=== PATIENT | female | born 1960 | race Caucasian/White ===

== ENCOUNTER 2018-04-01 22:06 | Observation (INO) ==
--- NOTE | 2018-04-01 22:29 | Emergency Department Note ---
Disposition Clinical Impression: Chest pain Disposition: Admitted As Inpatient Condition: Good General Adult HPI - General Chief complaint: ED Chest Pain Stated complaint: chest pains Time Seen by Provider: 04/01/18 22:23 Source: patient Limitations: no limitations - History of Present Illness Pain Scale: 4 - Related Data Home Medications Medication Instructions Recorded Confirmed BuPROPion SR (12 HR) [Wellbutrin 150 mg PO BID 04/02/18 04/02/18 SR] Lisinopril-HCTZ 10-12.5 [Prinzide 1 each PO DAILY 04/02/18 04/02/18 10-12.5] Lovastatin [Altoprev] 40 mg PO HS 04/02/18 04/02/18 glipiZIDE [Glipizide] 10 mg PO BID 04/02/18 04/02/18 Allergies Allergy/AdvReac Type Severity Reaction Status Date / Time Penicillins AdvReac Rash Verified 04/01/18 22:07 Past Medical History - Past Medical History Medical history: Reports: diabetes, hypertension Psychiatric history: Reports: no psych history - Social History Smoking Status: Former smoker Alcohol use: Reports: none Drug use: Reports: none Physical Exam - General Limitations: no limitations General appearance: alert Course Vital Signs Temperature 97.8 F 04/01/18 22:08 Pulse Rate 71 04/01/18 22:08 Respiratory Rate 20 04/01/18 22:08 Blood Pressure 137/68 04/01/18 22:08 O2 Sat by Pulse Oximetry 97 04/01/18 22:08 Temperature 97.4 F L 04/02/18 03:25 Pulse Rate 60 04/02/18 03:25 Respiratory Rate 15 04/02/18 03:25 Blood Pressure 112/63 04/02/18 03:25 O2 Sat by Pulse Oximetry 100 04/02/18 03:25 Oxygen Delivery Oxygen Delivery Room Air Medical Decision Making - Lab Data Result diagrams: 04/01/18 22:20 04/01/18 22:20 Lab Results 04/01/18 04/01/18 04/01/18 Range/Units 22:20 22:20 22:20 WBC 5.9 (4.3-11.1) K/mcL RBC 4.66 (3.82-4.97) M/mcL Hgb 12.9 (11.5-15.4) g/dL Hct 38.6 (35.3-44.9) % MCV 82.8 L (83.0-100.0) fL MCH 27.7 L (28.0-33.3) pg MCHC 33.4 (31.6-35.5) g/dL RDW 13.7 (11.5-14.5) % Plt Count 276 (140-400) K/mcL MPV 9.7 (9.4-12.4) fL Immature Gran % 0.3 (0-4) % Seg Neutrophils % 42.1 % Lymphocytes % 45.4 % Monocytes % 8.1 % Eosinophils % 3.4 % Basophils % 0.7 % Neutrophils # 2.5 (1.6-8.9) K/mcL Lymphocytes # 2.7 (0.6-4.6) K/mcL Monocytes # 0.5 (0.0-1.3) K/mcL Eosinophils # 0.2 (0.0-0.6) K/mcL Basophils # 0.0 (0.0-0.2) K/mcL PT 10.4 (9.4-12.1) Seconds INR 0.9 APTT 36.1 H (26.0-36.0) Seconds Sodium 141 (136-145) mEq/L Potassium 3.6 (3.5-5.1) mEq/L Chloride 104 (98-107) mEq/L Carbon Dioxide 26 (23-29) mEq/L BUN 18 (8-23) mg/dL Creatinine 0.74 (0.60-1.20) mg/dL Est GFR ( Amer) > 60 (> 60) Est GFR (Non-Af Amer) > 60 (> 60) BUN/Creatinine Ratio 24 (6-26) Glucose 165 H (70-105) mg/dL Calculated Osmolality 298 (280-300) Calcium 9.4 (8.6-10.3) mg/dL Troponin I < 0.03 (< 0.04) ng/mL Attestation Statement - Attestation Attestation: I examined this patient and my medical decision-making was reviewed with the Resident Physician. I agree with the documented findings, disposition and treatment plan as described except to the extent set forth below. Uedp-ro-desh time provided Patient arrives complaining of chest discomfort. No previous history of coronary artery disease known to her. She appears in no acute distress on exam. Cardiac workup initiated in conjunction with the resident physician Dr. Horn
[2018-04-01 22:33] LABS: Basophils % 0.7 %; Eosinophils # 0.2 K/mcL (0.0-0.6); Eosinophils % 3.4 %; Hematocrit 38.6 % (35.3-44.9); Hemoglobin 12.9 g/dL (11.5-15.4); Immature Granulocytes % 0.3 % (0-4); Lymphocytes # 2.7 K/mcL (0.6-4.6); Lymphocytes % 45.4 %; Mean Corpuscular HGB Conc 33.4 g/dL (31.6-35.5); Mean Corpuscular Hemoglobin 27.7 pg (28.0-33.3); Mean Corpuscular Volume 82.8 fL (83.0-100.0); Mean Platelet Volume 9.7 fL (9.4-12.4); Monocytes # 0.5 K/mcL (0.0-1.3); Monocytes % 8.1 %; Neutrophils # 2.5 K/mcL (1.6-8.9); Platelet Count 276 K/mcL (140-400); Red Blood Count 4.66 M/mcL (3.82-4.97); Red Cell Distribution Width 13.7 % (11.5-14.5); Segmented Neutrophils % 42.1 %
[2018-04-01 22:41] LABS: INR 0.9; Prothrombin Time 10.4 Seconds (9.4-12.1)
[2018-04-01 22:43] LABS: Activated Partial Thrombo Time 36.1 Seconds (26.0-36.0)
[2018-04-01] MEDS ORDERED: Aspirin 81 MG TAB.CHEW PO STA (22:47)
[2018-04-01] MEDS ORDERED: Ketorolac 15 MG/ML VIAL IVP ONE (22:47)
[2018-04-01] MEDS ORDERED: Nitroglycerin 0.4 MG TAB.SUBL SL PRN (22:51)
[2018-04-01 22:52] LABS: BUN/Creatinine Ratio 24 (6-26); Blood Urea Nitrogen 18 mg/dL (8-23); Calcium 9.4 mg/dL (8.6-10.3); Carbon Dioxide 26 mEq/L (23-29); Chloride 104 mEq/L (98-107); Glucose 165 mg/dL (70-105); Osmolality,Calculated 298 (280-300); Potassium 3.6 mEq/L (3.5-5.1); Sodium 141 mEq/L (136-145); Troponin I < 0.03 ng/mL (< 0.04); eGFR For Non-African Americans > 60 (> 60)
--- NOTE | 2018-04-01 23:22 | Emergency Department Note ---
Disposition Clinical Impression: Chest pain Qualifiers: Chest pain type: unspecified Qualified Code(s): R07.9 - Chest pain, unspecified Disposition: Admitted As Inpatient Condition: Good Instructions: Chest Pain (ED) Referrals: Roshan Bernard DO [Primary Care Provider] - Forms: ED Satisfaction Letter Time of Disposition: 23:35 Chest Pain HPI - General Chief Complaint: ED Chest Pain Stated Complaint: chest pains Time Seen by Provider: 04/01/18 22:23 Source: patient Limitations: no limitations Vital Signs Reviewed: Yes Nursing Notes Reviewed: Yes - History of Present Illness HPI Narrative: 58-year-old female former smoker, hypertension, pre-diabetes presents an emergency department with chest pain. Sharp pain in the left chest wall starting around 1830 while prepping for dinner. She did get short of breath and diaphoretic. She is still having some pain. As gradually worsened. He does seem to wraparound to the back. She has a history of back spasms. She initially thought that is what it was and took a baby aspirin with minimal relief. She denies any recent illness coffer congestion. No radiation up the neck or down the arms. No leg swelling. Family history of cardiac disease and brother and father around the age of 40. She has not had a prior cardiac evaluation. No history of cancer, long-distance travel or blood clots. Severity scale (1-10): 4 - Related Data Allergies Allergy/AdvReac Type Severity Reaction Status Date / Time Penicillins AdvReac Rash Verified 04/01/18 22:07 All systems ED: reviewed and negative except as stated. Review of Systems: As Per HPI Constitutional: Denies: fever, chills Cardiovascular: Reports: chest pain. Denies: syncope Respiratory: Reports: dyspnea. Denies: cough Gastrointestinal: Denies: abdominal pain, nausea, vomiting Genitourinary: Denies: urgency, frequency Musculoskeletal: Denies: back pain Integumentary: Denies: rash, abrasion Neurological: Denies: headache Chest Pain PMH - Past Medical History Medical history: Reports: diabetes, hypertension Psychiatric history: Reports: no psych history - Social History Smoking Status: Former smoker Alcohol use: Reports: none Drug use: Reports: none Physical Exam - General Limitations: no limitations General appearance: alert - Head Head exam: atraumatic, normocephalic, normal inspection - Eye Eye exam: Present: normal appearance, PERRL, EOMI - ENT ENT exam: normal exam, normal oropharynx, mucous membranes moist - Neck Neck exam: Present: normal inspection, full ROM, trachea midline - Chest Chest inspection: Present: normal inspection - Respiratory Respiratory exam: Present: normal lung sounds bilaterally. Absent: respiratory distress, wheezes - Cardiovascular Cardiovascular exam: Present: regular rate, normal rhythm, normal heart sounds. Absent: systolic murmur, diastolic murmur - Expanded Cardiovascular Exam Peripheral pulses: 2+: radial (R), radial (L) - Abdominal Exam Abdominal exam: Present: soft, Non-Tender, normal bowel sounds. Absent: tenderness, distention, guarding, rebound, rigidity - Extremities Exam Extremities exam: Present: normal inspection, full ROM, normal capillary refill. Absent: tenderness, pedal edema, calf tenderness - Back Exam Back exam: Present: normal inspection, full ROM. Absent: tenderness, CVA tenderness (R), CVA tenderness (L) - Neurological Exam Neurological exam: Present: alert, oriented X3 - Psychiatric Psychiatric exam: Present: normal affect, normal mood - Skin Skin exam: Present: warm, dry, intact, normal color, diaphoresis. Absent: rash , cyanosis Course Course Narrative: Patient presents with chest pain 4 hours prior to arrival. She is still having some chest discomfort. It wraps around to the back. She has some associated shortness of breath and is still little diaphoretic. Radial pulses bilaterally. No prior history of cardiac ischemic disease. Family history. EKG did not reveal any acute ischemic changes. Chest pain workup initiated. Aspirin given. No G.I. bleed symptoms. Nitro trial. - Reevaluation(s) Reevaluation #1: Labs unremarkable. Troponin lesson 0.03. Pain has improved down to a 2 out of 10 with the nitro. She will be admitted for further chest pain evaluation for acute coronary syndrome. Patient is in agreement with this plan. Time: 23:36 - Consultations Consultation #1: Spoke with on-call hospitalist tucker Alarcon to admit for chest pain. No further orders at this time Time: 23:35 Vital Signs Temperature 97.8 F 04/01/18 22:08 Pulse Rate 71 04/01/18 22:08 Respiratory Rate 20 04/01/18 22:08 Blood Pressure 137/68 04/01/18 22:08 O2 Sat by Pulse Oximetry 97 04/01/18 22:08 Temperature 97.8 F 04/01/18 22:08 Pulse Rate 71 04/01/18 22:08 Respiratory Rate 20 04/01/18 22:08 Blood Pressure 137/68 04/01/18 22:08 O2 Sat by Pulse Oximetry 97 04/01/18 22:08 Oxygen Delivery Oxygen Delivery Room Air Chest Pain - MDM Narrative Medical decision making narrative: Patient was discussed with my attending physician who agrees with ED management and final disposition. They independently evaluated the patient. Please refer to their attestation to this encounter for additional information. This note was generated by [employer] voice recognition software and as a result grammatical or spelling errors may occur using this program. - Medical Records Medical records reviewed: Yes I reviewed the patient's medical records. - Lab Data Lab results reviewed: Yes I reviewed the patient's lab results. Result diagrams: 04/01/18 22:20 04/01/18 22:20 Lab Results 04/01/18 04/01/18 04/01/18 Range/Units 22:20 22:20 22:20 WBC 5.9 (4.3-11.1) K/mcL RBC 4.66 (3.82-4.97) M/mcL Hgb 12.9 (11.5-15.4) g/dL Hct 38.6 (35.3-44.9) % MCV 82.8 L (83.0-100.0) fL MCH 27.7 L (28.0-33.3) pg MCHC 33.4 (31.6-35.5) g/dL RDW 13.7 (11.5-14.5) % Plt Count 276 (140-400) K/mcL MPV 9.7 (9.4-12.4) fL Immature Gran % 0.3 (0-4) % Seg Neutrophils % 42.1 % Lymphocytes % 45.4 % Monocytes % 8.1 % Eosinophils % 3.4 % Basophils % 0.7 % Neutrophils # 2.5 (1.6-8.9) K/mcL Lymphocytes # 2.7 (0.6-4.6) K/mcL Monocytes # 0.5 (0.0-1.3) K/mcL Eosinophils # 0.2 (0.0-0.6) K/mcL Basophils # 0.0 (0.0-0.2) K/mcL PT 10.4 (9.4-12.1) Seconds INR 0.9 APTT 36.1 H (26.0-36.0) Seconds Sodium 141 (136-145) mEq/L Potassium 3.6 (3.5-5.1) mEq/L Chloride 104 (98-107) mEq/L Carbon Dioxide 26 (23-29) mEq/L BUN 18 (8-23) mg/dL Creatinine 0.74 (0.60-1.20) mg/dL Est GFR ( Amer) > 60 (> 60) Est GFR (Non-Af Amer) > 60 (> 60) BUN/Creatinine Ratio 24 (6-26) Glucose 165 H (70-105) mg/dL Calculated Osmolality 298 (280-300) Calcium 9.4 (8.6-10.3) mg/dL Troponin I < 0.03 (< 0.04) ng/mL - Radiology Data Radiology results reviewed: Yes I reviewed the patient's radiology results. Chest X-Ray 04/01/18 22:14 IMPRESSION: No acute findings to account for the patient's chest pain. D/ / Jermain Rivera / Jermain Rivera Interpreting Provider: Jermain Rivera - EKG Data EKG attestation: Yes I reviewed and interpreted this EKG. EKG results narrative: EKG performed 2213 normal sinus rhythm 74 beats per minute, normal axis, no ST elevation or depression, no old EKG available for comparison at this time. No acute ischemic changes. Heart Score - Score History: Moderately Suspicious EKG: Normal Age: 45-65 Risk Factors: Equal/Greater than 3 risk factor or history of atherosclerotic disease Troponin: Less than normal limit HEART Score Total: 4
[2018-04-01] MEDS ORDERED: Acetaminophen 325 MG TABLET PO PRN (23:30)
[2018-04-01] MEDS ORDERED: *HR* OxyCODONE Immed Rel 5 MG TABLET PO PRN (23:30)
[2018-04-01] MEDS ORDERED: Naloxone 0.4 MG/ML INJ IVP PRN (23:30)
[2018-04-01] MEDS ORDERED: *HR* Dextrose 50 % in Water (Syg) 50 ML SYRINGE IVP PRN (23:44)
[2018-04-01] MEDS ORDERED: Dextrose Gel 15 GM/37.5 ML TUBE PO PRN ×2 (23:44)
[2018-04-01] MEDS ORDERED: D5% in Water 1,000 ML IVC PRN (23:44)
--- NOTE | 2018-04-01 23:50 | Internal Med History&Physical ---
Date of Encounter: 04/01/18 Time of Encounter: 23:30 Internal Medicine - H&P: HPI Chief complaint: chest pain Admitted From: Home History of present illness: Ms. Blackwell is a 58 year old female with past medical history of diabetes, hypertension, hyperlipidemia, presented to the ED with acute onset of chest pain. Sharp in nature, substernal, started suddenly at 630pm while preparing for dinner. Radiates to L shoulder, associated with diaphoresis and SOB. No aggravating or relieving factors. She initially thought that it was her back spasm and took a baby aspirin with minimal relief. Family history of premature CAD in her brother who had CABG at the age of 45. 15 pack year history of smoking but quit 26 years ago. In the ED, she was afebrile and hemodynamically stable. Labs including CBC, BMP, and troponin were unremarkable. EKG NSR without ST elevation or depression. Chest x-ray within normal limits. She was loaded with aspirin and admitted for further management. Past Med Surg Social Fam HX - Past Medical History Medical history: diabetes, hyperlipidemia, hypertension Psychiatric history: no psych history - Past Surgical History Additional surgical history: lung collapse, tubal - Social History Smoking Status: Former smoker Alcohol use: none Drug use: none Internal Medicine - H&P: Meds 3 Allergy/AdvReac Type Severity Reaction Status Date / Time Penicillins AdvReac Rash Verified 04/01/18 22:07 All Systems PM: A 10-system review of systems was performed and is negative for pertinent findings except as documented above in the HPI. - Constitutional Vitals: Temp Pulse Resp BP Pulse Ox 97.8 F 71 20 137/68 97 04/01/18 22:08 04/01/18 22:08 04/01/18 22:08 04/01/18 22:08 04/01/18 22:08 Exam: General: Alert and oriented, not in acute distress. HEENT:EOM, pupils equal, round and reactive. Cardiovascular:Normal S1 & S2, No JVD. Pulse regular. No chest wall tenderness Lungs: clear to auscultation, no wheezes/rales Abdomen:Soft, non-tender, no rigidity. Extremities:No deformity or swelling Neurological:Normal cognition and motor skills. Non-focal Skin:Normal color, no rash, no lesions. Pulses:Carotid and radial pulses normal +2. Rest of the physical exam is non contributory Internal Med - H&P Results - Labs CBC & Chem 7: 04/01/18 22:20 04/01/18 22:20 Labs: Short CBC 04/01/18 Range/Units 22:20 WBC 5.9 (4.3-11.1) K/mcL Hgb 12.9 (11.5-15.4) g/dL Hct 38.6 (35.3-44.9) % Plt Count 276 (140-400) K/mcL Neutrophils # 2.5 (1.6-8.9) K/mcL BMP 04/01/18 22:20 Sodium 141 Potassium 3.6 Chloride 104 Carbon Dioxide 26 BUN 18 Creatinine 0.74 Glucose 165 H Calcium 9.4 Cardiac Enzymes 04/01/18 Range/Units 22:20 Troponin I < 0.03 (< 0.04) ng/mL - Impressions ITS Impressions Chest X-Ray 04/01/18 22:14 IMPRESSION: No acute findings to account for the patient's chest pain. D/ / Jermain Rivera / Jermain Rivera Interpreting Provider: Jermain Rivera - Assessment and plan (1) Chest pain Current Visit: Yes Status: Acute Assessment and plan: Atypical chest pain a patient with risk factors including diabetes, hypertension , hyperlipidemia, obesity, and family history of premature CAD. Loaded with ASA in the ED, continue 81mg daily resume home dose of statin when reconciled nitro PRN trend troponin, choice of further ischemic workup to be decided after the subsequent troponins. Qualifiers: Chest pain type: unspecified Qualified Code(s): R07.9 - Chest pain, unspecified (2) Diabetes Current Visit: Yes Status: Acute Assessment and plan: On glipizide at home. Hold off Low dose sliding scale ADA diet Qualifiers: Diabetes mellitus type: type 2 Diabetes mellitus intermediate project manager insulin use: without residential use Diabetes mellitus complication status: with unspecified complications Qualified Code(s): E11.8 - Type 2 diabetes mellitus with unspecified complications (3) Hypertension Current Visit: Yes Status: Acute Assessment and plan: Resume home meds when reconciled Qualifiers: Hypertension type: unspecified Qualified Code(s): I10 - Essential (primary ) hypertension (4) DVT prophylaxis Current Visit: Yes Status: Acute Assessment and plan: Sq heparin - Time Spent With Patient Total time spent is greater than 50% in coordination of care (as documented) at patient's floor/unit and/or counseling patient:
[2018-04-02] MEDS ORDERED: Aspirin 81 MG TAB.CHEW PO ONE (00:02)
[2018-04-02] MEDS: *HR* Heparin 5,000 UNIT/ML VIAL SQ SCH ×2 (05:57→18:05)
[2018-04-02 06:32] LABS: Chol/HDL Ratio 2.4 (0-4.9)
[2018-04-02] MEDS: Insulin LISPRO 300 UNITS/3 ML VIAL SQ SCH ×3 (08:45→17:50)
[2018-04-02] MEDS: BuPROPion SR (12 HR) 150 MG TABLET PO SCH ×2 (08:56→20:10)
[2018-04-02] MEDS: *HR* HYDROcodone/Acet 5/325 mg TABLET PO PRN (12:11)
--- NOTE | 2018-04-02 12:56 | Internal Med Progress Note ---
Hospitalist Progress Note - Encounter Date of Encounter: 04/02/18 Time of Encounter: 11:00 - Subjective Interval History: Patient seen and examined at bedside. No CP voiced at this time . - Exam Vitals: Temp Pulse Resp BP Pulse Ox 97.6 F 59 18 127/81 97 04/02/18 12:02 04/02/18 12:02 04/02/18 12:02 04/02/18 12:02 04/02/18 12:02 Exam: General appearance: Present: A&O X 3, answers questions appropriately - Head Head exam: Present: atraumatic, normocephalic - Eye Eye exam: Present: PERRL, conjuntiva pink, sclera anicteric Pupils: Present: PERRL - Neck Neck exam general surgery: Present: supple, trachea midline. Absent: lymphadenopathy - Respiratory Respiratory exam: Present: CTAB. Absent: accessory muscle use, rales, rhonchi, wheezes - Cardiovascular Cardiovascular exam: Present: RRR, +S1, +S2. Absent: diastolic murmur, gallop, rubs, systolic murmur - GI/Abdominal GI/Abdominal exam: Present: normal bowel sounds, soft, no peritoneal signs. Absent: distended, tenderness - Extremities Exam Extremities exam: Present: warm, radial pulses palpable and symmetrical. Absent : calf tenderness, cyanotic, pedal edema - Neurological Exam Neurological exam: Present: CN II-XII intact, oriented X3, no focal deficits. Absent: pronater drift, facial droop, speech deficit - Skin Skin exam: Present: dry, intact - Assessment and Plan (1) Chest pain Current Visit: Yes Status: Acute Assessment and Plan: Atypical chest pain a patient with risk factors including diabetes, hypertension , hyperlipidemia, obesity, and family history of premature CAD.- Last stres test was over 10 yrs ago states she had a cardiac Cath approx 10 yr ago which was negative continue ASA 81mg daily, Statin nitro PRN trend troponin, negative X3 will obtain echo Cardiac stress test in am (2) Diabetes Current Visit: Yes Status: Acute Assessment and Plan: On glipizide at home. Hold orals and resume at discharge Low dose sliding scale ADA diet (3) Hypertension Current Visit: Yes Status: Acute Assessment and Plan: controlled cont with hme medication Prinzide (4) DVT prophylaxis Current Visit: Yes Status: Acute Assessment and Plan: Sq heparin - Time Spent with Patient Total time spent is greater than 50% in coordination of care (as documented) at patient's floor/unit and/or counseling patient: Internal Medicine: Result - Labs CBC & Chem 7: 04/01/18 22:20 04/01/18 22:20 Labs: Cardiac Enzymes 04/02/18 04/02/18 Range/Units 05:24 10:20 Troponin I < 0.03 < 0.03 (< 0.04) ng/mL - ABG Interpretation ABG results: PT/INR, D-dimer PT 10.4 Seconds (9.4-12.1) 04/01/18 22:20 Consult Discharge Plan - Plan Referrals: Roshan Bernard DO [Primary Care Provider] - (1) Chest pain Qualifiers: Chest pain type: unspecified Qualified Code(s): R07.9 - Chest pain, unspecified (2) Diabetes Qualifiers: Diabetes mellitus type: type 2 Diabetes mellitus terminal operations manager insulin use: without half-way use Diabetes mellitus complication status: with unspecified complications Qualified Code(s): E11.8 - Type 2 diabetes mellitus with unspecified complications (3) Hypertension Qualifiers: Hypertension type: unspecified Qualified Code(s): I10 - Essential (primary) hypertension
[2018-04-02 13:47] LABS: Estimated Average Glucose 137 mg/dl; Hemoglobin A1C 6.4 %
[2018-04-02] MEDS ORDERED: Insulin LISPRO 300 UNITS/3 ML VIAL SQ SCH (21:00)
[2018-04-03] MEDS: *HR* Heparin 5,000 UNIT/ML VIAL SQ SCH (05:49)
[2018-04-03] MEDS ORDERED: Aspirin Enteric Coated 81 MG Tablet PO SCH (09:00)
[2018-04-03] MEDS: Insulin LISPRO 300 UNITS/3 ML VIAL SQ SCH ×2 (09:43→12:16)
[2018-04-03] MEDS: BuPROPion SR (12 HR) 150 MG TABLET PO SCH (09:49)
[2018-04-03 11:26] VITALS: BP 129/82
--- NOTE | 2018-04-03 12:45 | Discharge Summary ---
- NOTES TO OUTPATIENT PROVIDER Notes to Outpatient Provider: Had cardiac stress test which was negative for infarct or ischemia Orders not resulted at time of discharge: Pending orders 04/02/18 11:15 EKG [ECG 12 lead ECG] [ECG] Routine 04/02/18 14:31 NM vira perf SPECT multi [NM] Routine Date of Encounter: 04/03/18 Time of Encounter: 12:43 - Discharge Diagnosis (1) Chest pain Priority: Primary Status: Acute Qualifiers: Chest pain type: unspecified Qualified Code(s): R07.9 - Chest pain, unspecified (2) Diabetes Priority: Secondary Status: Acute Qualifiers: Diabetes mellitus type: type 2 Diabetes mellitus fpc insulin use: without terminal makeup operator use Diabetes mellitus complication status: with unspecified complications Qualified Code(s): E11.8 - Type 2 diabetes mellitus with unspecified complications (3) Hypertension Priority: Secondary Status: Acute Qualifiers: Hypertension type: unspecified Qualified Code(s): I10 - Essential (primary ) hypertension Hospital course: Ms. Blackwell is a 58 year old female past medical hx of DM HTN HLD presented to the ED with acute onset of CP substernal radiating to L shoulder . Intially thought back spasm but no relief. She has family hx of premature CAD in brother. CXR with no acute finding EKG with no ST T wave abnormalities Labwork unremarkable. Echo with EF 60 % mild left ventricular diastolic dysfunction Troponin negative X3 Cardiac stress test negative for ischemia or infarct. She hemodynamically stable Suspect muscular skeletal. Advised patient tot follow up with PCP. Verbalized understanding Discharge discussed with: patient - Time Spent with Patient Total time spent providing and/or coordinating discharge services: - Discharge Medications Home Medications: BuPROPion SR (12 HR) [Wellbutrin SR] 150 mg PO BID 04/02/18 [History] Lisinopril-HCTZ 10-12.5 [Prinzide 10-12.5] 1 each PO DAILY 04/02/18 [History] Lovastatin [Altoprev] 40 mg PO HS 04/02/18 [History] glipiZIDE [Glipizide] 10 mg PO BID 04/02/18 [History] Allergies/Adverse Reactions: 3 Allergy/AdvReac Type Severity Reaction Status Date / Time Penicillins AdvReac Rash Verified 04/01/18 22:07 Date of admission: 04/01/18 23:38 Primary care physician: Roshan Bernard DO Consults: 04/02/18 01:01 Consult to Mechanical Maintenance Worker [CONS] Routine Reason for Consult: financial concerns Discharging clinician: Prisca Bolanos Anticipated date of discharge: 04/03/18 - Constitutional Vitals: Temp Pulse Resp BP Pulse Ox 98.1 F 70 15 129/82 93 04/03/18 11:20 04/03/18 11:20 04/03/18 11:20 04/03/18 11:20 04/03/18 11:20 General appearance: Present: A&O X 3 Exam: see above - Head Head exam: Present: atraumatic, normocephalic - Eye Eye exam: Present: PERRL, conjuntiva pink, sclera anicteric Pupils: Present: PERRL - Neck Neck exam general surgery: Present: supple, trachea midline. Absent: lymphadenopathy - Respiratory Respiratory exam: Present: CTAB. Absent: accessory muscle use, rales, rhonchi, wheezes - Cardiovascular Cardiovascular exam: Present: RRR, +S1, +S2. Absent: diastolic murmur, gallop, rubs, systolic murmur - GI/Abdominal GI/Abdominal exam: Present: normal bowel sounds, soft, no peritoneal signs. Absent: distended, tenderness - Extremities Exam Extremities exam: Present: warm, radial pulses palpable and symmetrical. Absent : calf tenderness, cyanotic, pedal edema - Neurological Exam Neurological exam: Present: CN II-XII intact, oriented X3, no focal deficits. Absent: pronater drift, facial droop, speech deficit - Skin Skin exam: Present: dry, intact - Patient Status Disposition: Home, Self-Care Condition: Good Functional capacity at discharge: independent ambulation Overall status at discharge: patient is back to baseline - Discharge Instructions Instructions: Chest Pain (DC), Diabetes Mellitus Type 2 in Adults (DC), Chronic Hypertension (DC) Follow Up With: Roshan Bernard DO [Primary Care Provider] - - Diet and Activity Activity: resume usual activities as tolerated Diet: low fat, low cholesterol
[2018-04-03] MEDS: *HR* HYDROcodone/Acet 5/325 mg TABLET PO PRN (12:52)
--- NOTE | 2018-04-03 16:23 | Electrocardiograph Report ---
[place] [id number] Test Date: 2018-04-01 Pat Name: Chelsea Blackwell Department: 104 Room: 3B Gender: F [place]: REZA : 1960 Requested By: Caleb Wadsworth Order Number: [id number] Reading MD: Carmela Lind Measurements Intervals [place] Rate: 74 P: 46 DE: 164 QRS: 45 QRSD: 84 T: 70 QT: 391 QTc: 418 Interpretive Statements SINUS RHYTHM Electronically Signed On 04-03-2018 16:21:49 EDT by Carmela Lind
== END 2018-04-03 13:25 | disposition home or self-care (01) ==
LOC: EMEROO 22:06 → 3BNU 22:06
PROVIDERS: ADMIT Internal Medicine; ATTEND Internal Medicine

== ENCOUNTER 2020-03-10 04:30 | Observation (INO) ==
[2020-03-10 06:05] LABS: Basophils % 0.5 %; Eosinophils # 0.3 K/mcL (0.0-0.6); Eosinophils % 4.9 %; Hematocrit 33.5 % (35.3-44.9); Hemoglobin 10.6 g/dL (11.5-15.4); Immature Granulocytes % 0.4 % (0-4); Lymphocytes # 2.6 K/mcL (0.6-4.6); Lymphocytes % 46.5 %; Mean Corpuscular HGB Conc 31.6 g/dL (31.6-35.5); Mean Corpuscular Volume 85.2 fL (83.0-100.0); Mean Platelet Volume 9.9 fL (9.4-12.4); Monocytes # 0.6 K/mcL (0.0-1.3); Monocytes % 10.2 %; Neutrophils # 2.1 K/mcL (1.6-8.9); Platelet Count 278 K/mcL (140-400); Red Blood Count 3.93 M/mcL (3.82-4.97); Red Cell Distribution Width 13.8 % (11.5-14.5); Segmented Neutrophils % 37.5 %; White Blood Count 5.5 K/mcL (4.3-11.1)
[2020-03-10 06:13] LABS: INR 0.9; Prothrombin Time 10.1 Seconds (9.4-12.1)
[2020-03-10 06:16] LABS: Activated Partial Thrombo Time 37.4 Seconds (26.0-36.0); BUN/Creatinine Ratio 23 (6-26); Blood Urea Nitrogen 17 mg/dL (8-23); Calcium 9.3 mg/dL (8.6-10.3); Carbon Dioxide 27 mEq/L (23-29); Chloride 103 mEq/L (98-107); Glucose 99 mg/dL (70-105); Osmolality,Calculated 292 (280-300); Potassium 3.7 mEq/L (3.5-5.1); Sodium 140 mEq/L (136-145); Troponin I < 0.03 ng/mL (< 0.04); eGFR For African Americans > 60 (> 60); eGFR For Non-African Americans > 60 (> 60)
[2020-03-10] MEDS ORDERED: Isovue-370 500 ML BOTTLE IVP ONE (06:18)
[2020-03-10 06:38] LABS: D-Dimer < 215 ng/mLFEU (0-500)
[2020-03-10] MEDS ORDERED: Naloxone 0.4 MG/ML INJ IVP PRN (10:53)
[2020-03-10] MEDS ORDERED: Perflutren Lipid Microsphere 1.3 ML in 0.9 % Sodium Chloride 8.7 ML IVP PRN (10:56)
[2020-03-10] MEDS ORDERED: *HR* Dextrose 50 % in Water (Vial) 50 ML VIAL IVP PRN (10:56)
[2020-03-10] MEDS ORDERED: D5% in Water 1,000 ML IVC PRN (10:56)
[2020-03-10] MEDS ORDERED: Dextrose Gel 15 GM/37.5 ML TUBE PO PRN ×2 (10:56)
[2020-03-10] MEDS: Insulin LISPRO 300 UNITS/3 ML VIAL SQ SCH (19:31)
[2020-03-11 02:40] LABS: Basophils % 0.6 %; Eosinophils # 0.2 K/mcL (0.0-0.6); Eosinophils % 4.7 %; Hematocrit 35.2 % (35.3-44.9); Hemoglobin 11.3 g/dL (11.5-15.4); Immature Granulocytes % 0.2 % (0-4); Lymphocytes # 2.4 K/mcL (0.6-4.6); Lymphocytes % 47.2 %; Mean Corpuscular HGB Conc 32.1 g/dL (31.6-35.5); Mean Corpuscular Hemoglobin 27.9 pg (28.0-33.3); Mean Corpuscular Volume 86.9 fL (83.0-100.0); Mean Platelet Volume 9.4 fL (9.4-12.4); Monocytes # 0.5 K/mcL (0.0-1.3); Monocytes % 9.3 %; Neutrophils # 1.9 K/mcL (1.6-8.9); Platelet Count 259 K/mcL (140-400); Red Blood Count 4.05 M/mcL (3.82-4.97); Red Cell Distribution Width 13.7 % (11.5-14.5); White Blood Count 5.1 K/mcL (4.3-11.1)
[2020-03-11] MEDS ORDERED: Regadenoson 0.4 MG/5 ML SYRINGE IVP ONE ×2 (06:25→08:42)
[2020-03-11] MEDS ORDERED: *HR* LORazepam 2 MG/ML VIAL IVP ONE ×2 (07:04)
[2020-03-11] MEDS: Insulin LISPRO 300 UNITS/3 ML VIAL SQ SCH ×2 (10:23→12:44)
[2020-03-11 11:24] VITALS: BP 129/80
== END 2020-03-11 15:54 | disposition home or self-care (01) ==
LOC: EMEROOARM 04:30 → 3BNU 04:30
PROVIDERS: ADMIT Internal Medicine; ATTEND Internal Medicine